=== PATIENT | female | born 1985 | race Caucasian/White ===

== ENCOUNTER 2022-05-12 18:15 | Emergency (ER) | payer OTHER, SELFPAY ==
--- NOTE | ~2022-05-12 | XR_ITS ---
XR foot LT min 3V DATE: 05/12/2022 18:34 INDICATION: Injury, striking foot on metal. Metatarsal pain. TECHNIQUE: 4 views COMPARISON: None FINDINGS: Mild plantar calcaneal enthesopathy. No fracture or dislocation, periosteal reaction or bon e destruction. IMPRESSION: No fracture or dislocation Reviewed, dictated and finalized at location A. IMPRESSION: No fracture or dislocation
--- NOTE | 2022-05-12 18:20 | ED.LOWEXIN ---
HPI - Extremity Injury (Lower) General Chief Complaint: Extremity Injury, Lower Stated Complaint: Lt Foot Pain Time Seen by Provider: 05/12/22 18:26 Source: patient Mode of arrival: ambulatory Limitations: no limitations History of Present Illness HPI Narrative: Nina is a 36-year-old female patient presenting to clinic today with complaints of left-sided foot pain just below the great toe. She reports that she was getting up on a bumper of a fire truck and smacked her foot up against the bumper when she was trying to get in position to take a picture for a school event Related Data Home Medications Medication Instructions Recorded Confirmed No Home Medications 05/12/22 05/12/22 Allergies Allergy/AdvReac Type Severity Reaction Status Date / Time No Known Allergies Allergy Verified 01/04/18 08:09 adhesive AdvReac Mild Rash Verified 05/12/22 18:25 Review of Systems Review of Systems: Pertinent positives per HPI. Patient denies any fever, chills, rash, headache, visual changes, dizziness, cough, runny nose, sore throat, shortness of breath, chest pain, palpitations, nausea, vomiting, diarrhea, constipation, abdominal pain, or any urinary issues. PMFSH Social History Social History Smoking status: Never smoker Alcohol intake: current Comments At the time of my signature, I reviewed and agree with the nursing past medical, surgical, social, and family history. There is no relevant family history pertinent to the patient complaint. Exam Narrative: General: Well-developed, well nourished, in no apparent distress Head: Normocephalic, atraumatic. Cardio: Regular rate and rhythm, s1 and s2 normal, no murmur appreciated. Resp: Clear to auscultation bilaterally, no rhonchi, rales, wheezing or rubs. Musculoskeletal: No deformity, redness and swelling noted at the distal metatarsal base of great toe on left foot, tender to palpation to medial distal meta tarsal, pain with flexion and extension of the left great toe against resistance, grossly normal range of motion, muscle strength strong and equal, peripheral pulse strong, no cyanosis, normal gait and station Course Course Emergency Course: Portions of this record may have been created with voice recognition software. Level of Care: Express Care Visit Vital Signs Vital signs: Vital Signs Temperature 36.6 C 05/12/22 18:26 Pulse Rate 79 05/12/22 18:26 Respiratory Rate 18 05/12/22 18:26 Blood Pressure 121/66 05/12/22 18:26 Pulse Oximetry 100 05/12/22 18:26 Oxygen Delivery Room Air 05/12/22 18:26 Temperature 36.6 C 05/12/22 18:26 Pulse Rate 79 05/12/22 18:26 Respiratory Rate 18 05/12/22 18:26 Blood Pressure 121/66 05/12/22 18:26 Pulse Oximetry 100 05/12/22 18:26 Oxygen Delivery Room Air 05/12/22 18:26 Vital signs reviewed MDM - Extremity Injury (Lower) MDM Narrative Medical decision making narrative: At the time of the patient is resting comfortably on exam table. X-ray was performed of the left foot and it was negative for any sign of fracture or malalignment. I suspect the patient has a soft tissue injury/foot contusion of the left foot. Supportive measures were discussed with the patient she voiced understanding of discharge instructions and agrees to treatment plan. Differential Diagnosis Differential diagnosis: Likely fracture of toe and other (Foot fracture, foot contusion/soft tissue injury) Imaging Data Radiologist's impression: Close Foot X-Ray (Signed) Bean Chapman - 05/12/22 [facility] [address] [address] XRay Report Signed Patient: Nina Gomez : 1985 MR#: [id number] Age/Sex: 36 / F Acct:[id number] Loc: [facility]? ? ADM Date: 05/12/22Attending Dr: Ordering Physician: Lopez Figueroa APRN Date of Service:
[2022-05-12 18:26] VITALS: BP 121/66; PULSE 79; RESP 18; TEMP 36.6; O2SAT 100
== END 2022-05-12 18:44 | disposition home or self-care (01) ==
PROVIDERS: Emergency Provider Nurse Practitioner Family; PCP Internal Medicine
DX: S99.922A Unspecified injury of left foot, initial encounter (principal); W22.8XXA Striking against or struck by other objects, initial encounter
CPT/HCPCS: 73630; 99213; G0463